=== PATIENT | female | born 1965 | race Caucasian/White ===

== ENCOUNTER 2018-07-13 10:57 | Inpatient (IN) | payer MEDICAID, OTHER ==
[~2018-07-13] VITALS: Ht 165.1 cm; Wt 86.1 kg
[~2018-07-13 10:57] MED LIST: BENZ100C PO; GABA600T2 PO
[2018-07-13] MEDS ORDERED: KETOROLAC 30 MG/1 ML IVPush ONE (11:30)
[2018-07-13] MEDS ORDERED: ALBUTEROL/IPRATROPIUM 2.5MG/0.5MG, 3 ML NPPB ONE (11:30)
[2018-07-13] MEDS ORDERED: SODIUM CHLORIDE FLUSH 10ML SYR IVF ONE (11:30)
[2018-07-13] MEDS ORDERED: ALBUTEROL/IPRATROPIUM 2.5MG/0.5MG, 3 ML ONE ×2 (11:33→14:26)
[2018-07-13] MEDS ORDERED: KETOROLAC 30 MG/1 ML ONE (11:38)
[2018-07-13] MEDS ORDERED: ALBUTEROL SULFATE 2.5 MG/3 ML NPPB PRN ×2 (12:00→14:30)
[2018-07-13 12:03] LABS: ALBUMIN 3.6 g/dL (3.4-5.0); ANION GAP 10 mmol/L (5-15); CALCIUM 8.9 mg/dL (8.5-10.1); CHLORIDE 101 mmol/L (98-107); CREATININE 0.64 mg/dL (0.55-1.02)
[2018-07-13 12:05] LABS: RAPID INFLUENZA A POSITIVE (Negative); RAPID INFLUENZA B Negative (Negative)
[2018-07-13 12:07] LABS: BASOPHILS % (AUTO) 0 % (0-1); EOSINOPHILS % (AUTO) 0 % (1-7); LYMPHOCYTES # (AUTO) 1.39 x10^3/uL (1-3.4); LYMPHOCYTES % (AUTO) 16 % (22-44); MD NO; MEAN CORPUSCULAR HEMOGLOBIN 20.3 pg (27.0-34.8); MEAN CORPUSCULAR HGB CONC 30.4 g/dL (32.4-35.8); MEAN CORPUSCULAR VOLUME 66.7 fL (80-100); MEAN PLATELET VOLUME 7.1 fL (7.4-10.4); MONOCYTES # (AUTO) 0.88 x10^3/uL (0.2-0.8); MONOCYTES % (AUTO) 10 % (2-9); NEUTROPHILS # (AUTO) 6.57 x10^3/uL (1.8-6.8); NEUTROPHILS % (AUTO) 74 % (42-75); PLATELET COUNT 392 x10^3/uL (130-400); RED BLOOD COUNT 5.24 x10^6/uL (3.82-5.3); RED CELL DISTRIBUTION WIDTH 20.4 % (9.6-15.2)
[2018-07-13] MEDS ORDERED: OSELTAMIVIR 75 MG CAPSULE PO ONE (12:30)
[2018-07-13] MEDS ORDERED: SODIUM CHLORIDE FLUSH 10ML SYR IVF PRN (13:00)
[2018-07-13] MEDS ORDERED: ONDANSETRON 2MG/ML, 2ML IVPush PRN (14:00)
[2018-07-13] MEDS ORDERED: ONDANSETRON ODT 4 MG PO PRN (14:00)
[2018-07-13] MEDS: ENOXAPARIN 40 MG/0.4 ML SQ SCH (14:00)
[2018-07-13] MEDS ORDERED: hydrALAzine 20 MG/ML, 1ML IVPush PRN (14:00)
[2018-07-13 14:02] VITALS: BP 95/59
[2018-07-13] MEDS ORDERED: MIDAZOLAM 1 MG/ML, 5ML ONE (14:11)
[2018-07-13] MEDS ORDERED: FENTANYL PF 100 MCG/2ML ONE (14:11)
[2018-07-13] MEDS: ALBUTEROL/IPRATROPIUM 2.5MG/0.5MG, 3 ML NPPB SCH ×2 (14:51→19:33)
[2018-07-13] MEDS: GABAPENTIN 300 MG CAPSULE PO SCH ×2 (15:47→20:36)
[2018-07-13] MEDS: NS + 20MEQ KCL 1,000 ML IV SCH ×2 (15:47→22:55)
[2018-07-13 16:36] LABS: HEMOGLOBIN A1C 6.9 % (4.2-6.3)
[2018-07-13] MEDS: ACETAMINOPHEN 325 MG TABLET PO PRN (16:57)
[2018-07-13 20:00] VITALS: BP 101/62
[2018-07-13] MEDS: OSELTAMIVIR 75 MG CAPSULE PO SCH (20:36)
[2018-07-13] MEDS: GUAIFENESIN ER 600 MG TABLET PO SCH (20:37)
[2018-07-14] MEDS: ACETAMINOPHEN 325 MG TABLET PO PRN (01:13)
[2018-07-14 01:51] VITALS: BP 99/48
[2018-07-14] MEDS ORDERED: ALBUTEROL/IPRATROPIUM 2.5MG/0.5MG, 3 ML ONE (01:54)
[2018-07-14] MEDS: ALBUTEROL/IPRATROPIUM 2.5MG/0.5MG, 3 ML HHN SCH ×4 (02:30→20:30)
[2018-07-14] MEDS: NS + 20MEQ KCL 1,000 ML IV SCH ×3 (06:31→21:27)
[2018-07-14 07:35] VITALS: BP 96/45
[2018-07-14 07:57] LABS: ALANINE AMINOTRANSFERASE 23 U/L (12-78); ALBUMIN 2.6 g/dL (3.4-5.0); ANION GAP 7 mmol/L (5-15); CALCIUM 8.2 mg/dL (8.5-10.1); CHLORIDE 111 mmol/L (98-107); CREATININE 0.58 mg/dL (0.55-1.02)
[2018-07-14 08:00] LABS: ALKALINE PHOSPHATASE 89 U/L (45-117); BILIRUBIN,TOTAL 0.2 mg/dL (0.2-1.0); TOTAL PROTEIN 6.3 g/dL (6.4-8.2)
[2018-07-14 08:33] LABS: BASOPHILS # (AUTO) 0.03 x10^3/uL (0-0.1); BASOPHILS % (AUTO) 0 % (0-1); EOSINOPHILS % (AUTO) 0 % (1-7); LYMPHOCYTES % (AUTO) 27 % (22-44); MD SCAN; MEAN CORPUSCULAR HEMOGLOBIN 20.2 pg (27.0-34.8); MEAN CORPUSCULAR HGB CONC 30.1 g/dL (32.4-35.8); MEAN CORPUSCULAR VOLUME 67.2 fL (80-100); MONOCYTES # (AUTO) 0.89 x10^3/uL (0.2-0.8); MONOCYTES % (AUTO) 12 % (2-9); NEUTROPHILS # (AUTO) 4.69 x10^3/uL (1.8-6.8); NEUTROPHILS % (AUTO) 61 % (42-75); PLATELET COUNT 343 x10^3/uL (130-400); RED BLOOD COUNT 4.07 x10^6/uL (3.82-5.3); RED CELL DISTRIBUTION WIDTH 20.7 % (9.6-15.2)
[2018-07-14] MEDS ORDERED: BENZONATATE 100 MG CAPSULE PO SCH (09:00)
[2018-07-14] MEDS: OSELTAMIVIR 75 MG CAPSULE PO SCH ×2 (09:27→21:25)
[2018-07-14] MEDS: GABAPENTIN 300 MG CAPSULE PO SCH ×3 (09:27→21:24)
[2018-07-14] MEDS: GUAIFENESIN ER 600 MG TABLET PO SCH ×2 (09:27→21:24)
[2018-07-14] MEDS ORDERED: BENZONATATE 100 MG CAPSULE PO ONE (10:00)
[2018-07-14] MEDS: KETOROLAC 30 MG/1 ML IVPush SCH ×3 (10:10→22:03)
[2018-07-14 14:00] VITALS: BP 81/37
[2018-07-14] MEDS: ENOXAPARIN 40 MG/0.4 ML SQ SCH (14:53)
[2018-07-14] MEDS: BENZONATATE 100 MG CAPSULE PO SCH ×2 (16:23→21:25)
[2018-07-14 19:10] VITALS: BP 112/56
[2018-07-15] MEDS: ACETAMINOPHEN 325 MG TABLET PO PRN ×2 (00:15→14:13)
[2018-07-15 01:02] VITALS: BP 91/51
[2018-07-15] MEDS: ALBUTEROL/IPRATROPIUM 2.5MG/0.5MG, 3 ML HHN SCH ×4 (02:02→19:36)
[2018-07-15] MEDS: KETOROLAC 30 MG/1 ML IVPush SCH ×4 (04:27→22:21)
[2018-07-15] MEDS: NS + 20MEQ KCL 1,000 ML IV SCH ×3 (04:52→18:03)
[2018-07-15 06:45] VITALS: BP 117/60
[2018-07-15] MEDS: BENZONATATE 100 MG CAPSULE PO SCH ×3 (08:14→22:23)
[2018-07-15] MEDS: GUAIFENESIN ER 600 MG TABLET PO SCH ×2 (08:14→22:22)
[2018-07-15] MEDS: OSELTAMIVIR 75 MG CAPSULE PO SCH ×2 (08:14→22:22)
[2018-07-15] MEDS: GABAPENTIN 300 MG CAPSULE PO SCH ×3 (08:15→22:22)
[2018-07-15] MEDS: DOXYCYCLINE 100MG TABLET PO SCH ×2 (10:49→22:22)
[2018-07-15] MEDS: CEFTRIAXONE PMX 1GM/50ML 50 ML IV SCH (10:49)
[2018-07-15 12:09] VITALS: BP 129/54
[2018-07-15] MEDS: ENOXAPARIN 40 MG/0.4 ML SQ SCH (12:56)
[2018-07-15] MEDS ORDERED: LORazepam 2 MG/ML, 1ML ONE (14:22)
[2018-07-15] MEDS ORDERED: LORazepam 2 MG/ML, 1ML IVPush ONE (14:30)
[2018-07-15 18:45] VITALS: BP 111/62
[2018-07-16] MEDS: ALBUTEROL/IPRATROPIUM 2.5MG/0.5MG, 3 ML HHN SCH ×4 (00:34→20:30)
[2018-07-16] MEDS: NS + 20MEQ KCL 1,000 ML IV SCH ×2 (00:37→08:24)
[2018-07-16 01:10] VITALS: BP 123/64
[2018-07-16] MEDS: ACETAMINOPHEN 325 MG TABLET PO PRN (02:35)
[2018-07-16] MEDS: KETOROLAC 30 MG/1 ML IVPush SCH ×2 (04:39→08:24)
[2018-07-16 06:46] VITALS: BP 123/66
[2018-07-16] MEDS: GABAPENTIN 300 MG CAPSULE PO SCH ×3 (08:14→20:21)
[2018-07-16] MEDS: DOXYCYCLINE 100MG TABLET PO SCH ×2 (08:15→20:22)
[2018-07-16] MEDS: GUAIFENESIN ER 600 MG TABLET PO SCH ×2 (08:15→20:21)
[2018-07-16] MEDS: BENZONATATE 100 MG CAPSULE PO SCH ×3 (08:15→20:22)
[2018-07-16] MEDS: OSELTAMIVIR 75 MG CAPSULE PO SCH ×2 (08:15→20:21)
[2018-07-16] MEDS: CEFTRIAXONE PMX 1GM/50ML 50 ML IV SCH (09:54)
[2018-07-16] MEDS: methylPREDNISolone SOD SUCC 125 MG/2 ML IVPush SCH ×2 (09:54→15:56)
[2018-07-16 12:03] VITALS: BP 149/87
[2018-07-16] MEDS: ENOXAPARIN 40 MG/0.4 ML SQ SCH ×2 (15:59→16:05)
[2018-07-16 20:20] VITALS: BP 114/64
[2018-07-17] MEDS: ALBUTEROL/IPRATROPIUM 2.5MG/0.5MG, 3 ML HHN SCH ×3 (02:30→14:30)
[2018-07-17 02:35] VITALS: BP 133/63
[2018-07-17] MEDS: GUAIFENESIN ER 600 MG TABLET PO SCH (07:29)
[2018-07-17] MEDS: BENZONATATE 100 MG CAPSULE PO SCH ×2 (07:29→16:28)
[2018-07-17] MEDS: DOXYCYCLINE 100MG TABLET PO SCH (07:29)
[2018-07-17] MEDS: OSELTAMIVIR 75 MG CAPSULE PO SCH (07:29)
[2018-07-17] MEDS: GABAPENTIN 300 MG CAPSULE PO SCH ×2 (07:29→16:28)
[2018-07-17 08:18] VITALS: BP 118/55
[2018-07-17] MEDS: CEFTRIAXONE PMX 1GM/50ML 50 ML IV SCH (10:55)
[2018-07-17] MEDS ORDERED: DOXY100T PO (12:09)
[2018-07-17] MEDS ORDERED: GUAI600T31 PO (12:09)
[2018-07-17] MEDS ORDERED: OSEL75CA PO (12:13)
[2018-07-17] MEDS ORDERED: CEFD300C37 PO (12:13)
[2018-07-17] MEDS ORDERED: PRED20TA PO (12:13)
[2018-07-17 13:25] VITALS: BP 133/55
== END 2018-07-17 18:36 | disposition home or self-care (01) | DRG 193 ==
LOC: ED 12:55 → OBSVTOIN 12:56 → INTOOBSV 12:56 → EDIP 12:56 → 4NOR 13:47
PROVIDERS: ADMIT Internal Medicine; ATTEND Internal Medicine
DX: J10.00 Influenza due to other identified influenza virus with unspecified type of pneumonia (principal); J96.01 Acute respiratory failure with hypoxia; F17.210 Nicotine dependence, cigarettes, uncomplicated; J45.909 Unspecified asthma, uncomplicated; Z66 Do not resuscitate; F32.9 Major depressive disorder, single episode, unspecified; R73.9 Hyperglycemia, unspecified; Z96.653 Presence of artificial knee joint, bilateral; Z98.84 Bariatric surgery status
CPT/HCPCS: 36415; 87400; 99285; J7620; 71046; 71250; 80048; 80053; 82040; 83036; 83605; 83735; 84100; 85025; 87040; 93005; 94640; G0378; J0696; J1650; J1885; J2250; J3010; J3480; Q0162; J2060; J2930; J7512

== ENCOUNTER 2018-07-25 12:08 | Emergency (ER) | payer SELFPAY ==
[~2018-07-25] VITALS: Ht 167.6 cm; Wt 83.6 kg
[~2018-07-25 12:08] MED LIST changes: +CEFD300C37 PO; +DOXY100T PO; +GUAI600T31 PO; +OSEL75CA PO; +PRED20TA PO
[2018-07-25] MEDS ORDERED: ALBUTEROL/IPRATROPIUM 2.5MG/0.5MG, 3 ML NPPB ONE ×2 (12:30→13:30)
[2018-07-25] MEDS ORDERED: ALBUTEROL/IPRATROPIUM 2.5MG/0.5MG, 3 ML ONE ×2 (12:37→13:32)
[2018-07-25 12:47] LABS: BASOPHILS # (AUTO) 0.05 x10^3/uL (0-0.1); BASOPHILS % (AUTO) 0 % (0-1); EOSINOPHILS # (AUTO) 0.04 x10^3/uL (0-0.4); EOSINOPHILS % (AUTO) 0 % (1-7); LYMPHOCYTES # (AUTO) 2.03 x10^3/uL (1-3.4); LYMPHOCYTES % (AUTO) 16 % (22-44); MD NO; MEAN CORPUSCULAR HGB CONC 30.3 g/dL (32.4-35.8); MEAN CORPUSCULAR VOLUME 66.3 fL (80-100); MEAN PLATELET VOLUME 7.1 fL (7.4-10.4); MONOCYTES # (AUTO) 0.86 x10^3/uL (0.2-0.8); MONOCYTES % (AUTO) 7 % (2-9); NEUTROPHILS # (AUTO) 10.06 x10^3/uL (1.8-6.8); NEUTROPHILS % (AUTO) 77 % (42-75); PLATELET COUNT 665 x10^3/uL (130-400); RED BLOOD COUNT 4.18 x10^6/uL (3.82-5.3); RED CELL DISTRIBUTION WIDTH 20.9 % (9.6-15.2)
[2018-07-25 12:57] LABS: ALBUMIN 3.1 g/dL (3.4-5.0); ANION GAP 11 mmol/L (5-15); CALCIUM 8.2 mg/dL (8.5-10.1); CHLORIDE 108 mmol/L (98-107)
[2018-07-25 13:01] LABS: TROPONIN I < 0.015 ng/mL (0.000-0.045)
[2018-07-25 14:33] VITALS: BP 119/79
== END 2018-07-25 14:36 | disposition home or self-care (01) ==
LOC: ED 12:47
DX: J09.X2 Influenza due to identified novel influenza A virus with other respiratory manifestations (principal); J40 Bronchitis, not specified as acute or chronic; F17.200 Nicotine dependence, unspecified, uncomplicated
CPT/HCPCS: 36415; 71046; 80048; 82040; 84484; 85025; 93005; 94640; 99284; J7620

== ENCOUNTER 2018-11-08 10:31 | Emergency (ER) | payer SELFPAY ==
[~2018-11-08] VITALS: Ht 165.1 cm; Wt 70.0 kg
[~2018-11-08 10:31] MED LIST changes: -GABA600T2 PO; +GABA600T7 PO
[2018-11-08] MEDS ORDERED: VITA1TAB3 PO (10:46)
[2018-11-08] MEDS ORDERED: IRON1TAB60 PO (10:46)
[2018-11-08] MEDS ORDERED: ONDANSETRON 2MG/ML, 2ML ONE (11:44)
[2018-11-08] MEDS ORDERED: ASPIRIN 81 MG TABLET CHEW ONE (11:44)
[2018-11-08] MEDS ORDERED: ONDANSETRON 2MG/ML, 2ML IVPush ONE (12:00)
[2018-11-08] MEDS ORDERED: ASPIRIN 81 MG TABLET CHEW PO ONE (12:00)
[2018-11-08] MEDS ORDERED: SODIUM CHLORIDE FLUSH 10ML SYR IVF ONE (12:00)
[2018-11-08 12:04] LABS: ALANINE AMINOTRANSFERASE 30 U/L (12-78); ALBUMIN 3.6 g/dL (3.4-5.0); ANION GAP 6 mmol/L (5-15); CHLORIDE 111 mmol/L (98-107); CREATININE 0.63 mg/dL (0.55-1.02); T4 (THYROXINE) 9.8 mcg/dL (4.8-13.9)
[2018-11-08 12:09] LABS: ALKALINE PHOSPHATASE 107 U/L (45-117); BILIRUBIN,TOTAL 0.3 mg/dL (0.2-1.0); TOTAL PROTEIN 7.1 g/dL (6.4-8.2); TROPONIN I < 0.015 ng/mL (0.000-0.045)
[2018-11-08 12:10] LABS: MEAN CORPUSCULAR HGB CONC 31.5 g/dL (32.4-35.8); MEAN CORPUSCULAR VOLUME 79.2 fL (80-100); MEAN PLATELET VOLUME 7.7 fL (7.4-10.4); PLATELET COUNT 503 x10^3/uL (130-400); RED BLOOD COUNT 5.41 x10^6/uL (3.82-5.3); RED CELL DISTRIBUTION WIDTH 23.7 % (9.6-15.2)
[2018-11-08 12:42] LABS: BASOPHILS # (AUTO) 0.03 x10^3/uL (0-0.1); BASOPHILS % (AUTO) 0 % (0-1); EOSINOPHILS # (AUTO) 0.05 x10^3/uL (0-0.4); EOSINOPHILS % (AUTO) 0 % (1-7); LYMPHOCYTES # (AUTO) 1.73 x10^3/uL (1-3.4); LYMPHOCYTES % (AUTO) 13 % (22-44); MD SCAN; MONOCYTES # (AUTO) 0.75 x10^3/uL (0.2-0.8); MONOCYTES % (AUTO) 6 % (2-9); NEUTROPHILS # (AUTO) 10.47 x10^3/uL (1.8-6.8); NEUTROPHILS % (AUTO) 80 % (42-75)
[2018-11-08 13:37] VITALS: BP 125/67
== END 2018-11-08 13:40 | disposition home or self-care (01) ==
LOC: ED 12:17
DX: R11.2 Nausea with vomiting, unspecified (principal); R07.9 Chest pain, unspecified; R53.1 Weakness; J45.909 Unspecified asthma, uncomplicated; G89.29 Other chronic pain
CPT/HCPCS: 36415; 71045; 80053; 83690; 83735; 84436; 84443; 84484; 85025; 93005; 96374; 99284; J2405

== ENCOUNTER 2020-06-10 00:07 | Emergency (ER) | payer SELFPAY ==
[~2020-06-10] VITALS: Ht 167.6 cm; Wt 68.0 kg
[~2020-06-10 00:07] MED LIST changes: +IRON1TAB60 PO; -OSEL75CA PO; +OSEL75CA26 PO; +VITA1TAB3 PO
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
--- NOTE | 2020-06-10 00:24 | NUR ---
PT PLACED ON L2K BY [employer] NUCLEAR MEDICINE CHIEF TECHNOLOGIST. PT CRYING AND REPORTING THAT SHES SCARED TO TALK TO ANYONE RIGHT NOW. PT PROVIDED WARM BLANKETS AND SPRITE FOR COMFORT. NAD, PT IS COOPERATIVE AT THIS TIME. NOTICABLY ANXIOUS.
[2020-06-10 00:35] LABS: BASOPHILS % (AUTO) 0 % (0-1); EOSINOPHILS % (AUTO) 0 % (1-7); LYMPHOCYTES % (AUTO) 7 % (22-44); MEAN CORPUSCULAR HEMOGLOBIN 29.9 pg (27.0-34.8); MEAN CORPUSCULAR HGB CONC 33.1 g/dL (32.4-35.8); MEAN PLATELET VOLUME 7.1 fL (7.4-10.4); MONOCYTES % (AUTO) 7 % (2-9); NEUTROPHILS % (AUTO) 86 % (42-75); PLATELET COUNT 283 x10^3/uL (130-400); RED BLOOD COUNT 4.78 x10^6/uL (3.82-5.3)
[2020-06-10 00:37] LABS: ALANINE AMINOTRANSFERASE 36 U/L (12-78); ANION GAP 8 mmol/L (5-15); CALCIUM 8.9 mg/dL (8.5-10.1); CHLORIDE 98 mmol/L (98-107); CREATININE 1.33 mg/dL (0.55-1.02); MD NO
[2020-06-10 00:47] LABS: ALKALINE PHOSPHATASE 120 U/L (45-117)
[2020-06-10] MEDS ORDERED: POTASSIUM CHLORIDE 20 MEQ TAB.ER.PRT PO ONE (01:00)
--- NOTE | 2020-06-10 01:01 | NUR ---
pt belongings 08/07 bags placed in locker. Pt sitting on gurney, uds walked to lab, pt crying and appears anxious. stating "do you see that man sitting at the end of the mathew there?" rn reoriented pt. si precuations in place, sitter in line of sight. wctm .
[2020-06-10 01:33] LABS: AMPHETAMINE SCREEN, URINE Positive (Negative); BARBITURATE SCREEN, URINE Negative (Negative); BENZODIAZEPINE SCREEN, URINE Negative (Negative); CANNABINOID SCREEN, URINE Negative (Negative); COCAINE SCREEN, URINE Negative (Negative); METHADONE SCREEN, URINE Negative (Negative); OPIATE SCREEN, URINE Negative (Negative)
[2020-06-10] MEDS ORDERED: ZIPRASIDONE 20 MG INJ IM ONE ×2 (01:53→02:00)
--- NOTE | 2020-06-10 02:10 | NUR ---
pt became increasingly aggitated. pt yelling at RNs and PA stating that "I NEED TO TALK TO THE MEDIA, YOU ARE ALL IN ON IT AND DONT BELIEVE ME." pt medicated per mar, sitter in line of sight, si precautions in place. WCTM.
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
--- NOTE | 2020-06-10 03:27 | NUR ---
pt resting on gurney, appears significantly more comfortable, pt eyes are closed but still frequently moving around on gurney, even and unlabored respirations. NAD, sitter in line of sight, SI precautions in place, WCTM. L2K
--- NOTE | 2020-06-10 05:01 | NUR ---
pt resting on gurney, appears comfortable, pt eyes are closed, even and unlabored respirations. NAD, sitter in line of sight, SI precautions in place, WCTM. L2K
--- NOTE | 2020-06-10 06:32 | NUR ---
pt resting comfortably on gurney, breakfast tray and hospital bed ordered for patient, NAD, eyes closed, even and unlabored respirations, sitter in line of sight, SI precautions in place, WCTM. L2K
--- NOTE | 2020-06-10 06:47 | NUR ---
BEDSIDE REPORT TO PUSHPA MORRIS, PT CARE TRANSFERRED AT THIS TIME.
--- NOTE | 2020-06-10 06:50 | NUR ---
REPORT RECEIVED FROM STEPHANIE MORRIS
--- NOTE | 2020-06-10 07:00 | NUR ---
PT SUPINE ON GURNEY WITH EYES CLOSED, RESTING CALMLY AND COMFORTABLY. NAD. NO PT NEEDS AT THIS TIME. SITTER IN VIEW AND SAFETY SOLORZANO DOWN. WILL CONTINUE TO MONITOR.
--- NOTE | 2020-06-10 08:03 | NUR ---
Note inez in EDM - 06/10/20 at 0803 by ASHLEY PT SUPINE ON HOSPITAL BED WITH EYES CLOSED, RESTING CALMLY AND COMFORTABLY. NAD. NO PT NEEDS AT THIS TIME. SITTER IN VIEW AND SAFETY SOLORZANO DOWN AND ISOLATION PRECAUTIONS PLACE. WILL CONTINUE TO MONITOR.
--- NOTE | 2020-06-10 08:03 | NUR ---
PT SUPINE ON HOSPITAL BED WITH EYES CLOSED, RESTING CALMLY AND COMFORTABLY. NAD. NO PT NEEDS AT THIS TIME. SITTER IN VIEW AND SAFETY SOLORZANO DOWN. WILL CONTINUE TO MONITOR.
--- NOTE | 2020-06-10 09:00 | NUR ---
PT SUPINE ON HOSPITAL BED, RESTING CALMLY AND COMFORTABLY. BREAKFAST TRAY PROVIDED. NAD. NO PT NEEDS AT THIS TIME. SITTER IN VIEW AND SAFETY SOLORZANO DOWN. WILL CONTINUE TO MONITOR.
--- NOTE | 2020-06-10 09:40 | NUR ---
UPON REPEAT VITALS AND ASSESSMENT OF PT, PT STATES "I REALLY NEED TO TALK TO SOMEONE. I NEED TO TALK TO MEDICAL RECORD, SOCIAL WORK AND WHOEVER ELSE THAT CAN HELP ME WITH MY RIGHTS. AND I WANT TO TALK TO MY FAMILY ON THE PHONE". PT STATES "IM NOT REALLY HUNGRY, I DONT WANT MY BREAKFAST". PT GIVEN A GLASS OF WATER PER REQUEST. NO ADDITIONAL NEEDS AT THIS TIME.
--- NOTE | 2020-06-10 10:00 | NUR ---
PT SUPINE ON HOSPITAL BED, RESTING CALMLY AND COMFORTABLY. NO BREAKFAST CONSUMED. NAD. NO PT NEEDS AT THIS TIME. SITTER IN VIEW AND SAFETY SOLORZANO DOWN. WILL CONTINUE TO MONITOR.
--- NOTE | 2020-06-10 10:08 | NUR ---
DISCUSSED PLAN OF CARE WITH HOME ECONOMICS EXTENSION WORKER CHAVO. AWAITING PSYCH PHYSICAL AERODYNAMICIST DEANNE FOR FOLLOW UP.
--- NOTE | 2020-06-10 10:30 | NUR ---
PSYCH CARLOS ALICEA AT BEDSIDE.
--- NOTE | 2020-06-10 11:00 | NUR ---
PT SITTING UPRIGHT ON BED. NAD, VSS. PT DENIES ANY NEEDS AT THIS TIME. SAFETY PRECAUTIONS IN PLACE. SITTER IN VIEW. WILL CONTINUE TO MONITOR.
[2020-06-10 11:56] VITALS: BP 135/77
--- NOTE | 2020-06-10 11:56 | NUR ---
Patient given discharge instructions and they have confirmed that they understand the instructions. Patient ambulatory with steady gait.
== END 2020-06-10 11:58 | disposition home or self-care (01) ==
LOC: ED 01:05
DX: F15.159 Other stimulant abuse with stimulant-induced psychotic disorder, unspecified (principal); F15.10 Other stimulant abuse, uncomplicated; R44.0 Auditory hallucinations; N28.9 Disorder of kidney and ureter, unspecified; E87.6 Hypokalemia; F17.210 Nicotine dependence, cigarettes, uncomplicated; G89.29 Other chronic pain; J45.909 Unspecified asthma, uncomplicated; Z72.9 Problem related to lifestyle, unspecified
CPT/HCPCS: 36415; 80053; 80307; 84443; 85025; 96372; 99285; 99406; J3486

== ENCOUNTER 2020-06-10 18:00 | Emergency (ER) | payer SELFPAY ==
[~2020-06-10] VITALS: Ht 162.6 cm; Wt 64.5 kg
[2020-06-10 18:33] LABS: BASOPHILS % (AUTO) 0 % (0-1); EOSINOPHILS % (AUTO) 0 % (1-7); LYMPHOCYTES % (AUTO) 17 % (22-44); MEAN CORPUSCULAR HEMOGLOBIN 30.3 pg (27.0-34.8); MEAN CORPUSCULAR HGB CONC 33.1 g/dL (32.4-35.8); MEAN PLATELET VOLUME 6.9 fL (7.4-10.4); MONOCYTES % (AUTO) 8 % (2-9); NEUTROPHILS % (AUTO) 74 % (42-75); PLATELET COUNT 272 x10^3/uL (130-400); RED BLOOD COUNT 4.68 x10^6/uL (3.82-5.3); RED CELL DISTRIBUTION WIDTH 17.2 % (9.6-15.2)
[2020-06-10 18:39] LABS: MD NO
[2020-06-10 18:42] LABS: ALANINE AMINOTRANSFERASE 39 U/L (12-78); ANION GAP 7 mmol/L (5-15); CHLORIDE 99 mmol/L (98-107); CREATININE 0.98 mg/dL (0.55-1.02)
[2020-06-10 18:45] LABS: ALKALINE PHOSPHATASE 116 U/L (45-117); TOTAL PROTEIN 7.7 g/dL (6.4-8.2)
--- NOTE | 2020-06-10 18:52 | NUR ---
bedside report from Haroon MORRIS. pt care transferred at this time. Pt NAD, pt noted to have rushed speech and appears frantic and anxious. pt ua walked to lab, placed on spo2/bp monitoring at this time. waiting for test results. laure.
[2020-06-10] MEDS ORDERED: POTASSIUM CHLORIDE 10% 40 MEQ/30 ML UDC PO ONE (19:00)
[2020-06-10 19:23] LABS: AMPHETAMINE SCREEN, URINE Positive (Negative); BARBITURATE SCREEN, URINE Negative (Negative); BENZODIAZEPINE SCREEN, URINE Negative (Negative); CANNABINOID SCREEN, URINE Negative (Negative); COCAINE SCREEN, URINE Negative (Negative); METHADONE SCREEN, URINE Negative (Negative); OPIATE SCREEN, URINE Negative (Negative)
[2020-06-10] MEDS ORDERED: POTASSIUM CHLORIDE 20 MEQ PACKET ONE (19:37)
--- NOTE | 2020-06-10 19:42 | NUR ---
pt medicated per oct,, back from ct resting on gurney, waiting for results. provided juice for comfort and warm socks. pt appears slightly more calm at this time but still reports being paranoid. wctm.
[2020-06-10] MEDS ORDERED: BUTALB/APAP/CAFFEINE 50MG/325MG/40MG PO ONE (20:00)
[2020-06-10] MEDS ORDERED: ONDANSETRON ODT 4 MG PO ONE (20:00)
[2020-06-10] MEDS ORDERED: ONDANSETRON ODT 4 MG ONE (20:13)
[2020-06-10] MEDS ORDERED: POTASSIUM CHLORIDE 20 MEQ TAB.ER.PRT PO ONE (20:30)
[2020-06-10 20:37] VITALS: BP 148/81
--- NOTE | 2020-06-10 20:51 | NUR ---
Patient given discharge instructions and they have confirmed that they understand the instructions. Patient ambulatory with steady gait. NAD, all questions answered appropriately. pt still slightly anxious at this time but provided resources for additional follow up. no personal belongings left in room at the time of dc.
== END 2020-06-10 21:05 | disposition home or self-care (01) ==
LOC: ED 18:32
DX: R51.9 Headache, unspecified (principal); F15.129 Other stimulant abuse with intoxication, unspecified; E87.6 Hypokalemia; R00.0 Tachycardia, unspecified; Z72.9 Problem related to lifestyle, unspecified; Z96.659 Presence of unspecified artificial knee joint
CPT/HCPCS: 36415; 70450; 80053; 80307; 83735; 85025; 93005; 99285; Q0162